=== PATIENT | female | born 1960 | race Caucasian/White ===

== ENCOUNTER → 2016-08-02 | Outpatient (CLI) | payer BC | LOC: BRMIMAGING 08:47 | PROVIDERS: ATTEND Internal Medicine | DX: R93.421 Abnormal radiologic findings on diagnostic imaging of right kidney (principal); R93.422 Abnormal radiologic findings on diagnostic imaging of left kidney; K76.0 Fatty (change of) liver, not elsewhere classified; I10 Essential (primary) hypertension; D72.829 Elevated white blood cell count, unspecified; R11.10 Vomiting, unspecified | CPT/HCPCS: 76700-PO ==

== ENCOUNTER → 2016-08-22 | Outpatient (CLI) | payer BC ==
[~2016-08-22] MED LIST: IOPAMIDOL (ISOVUE-300) 100 ML BTL IV ONE
== END ==
LOC: CIMAGING 10:23
PROVIDERS: ATTEND Internal Medicine
DX: N28.89 Other specified disorders of kidney and ureter (principal)
CPT/HCPCS: 74178-PO; Q9967

== ENCOUNTER → 2018-05-13 | Outpatient (CLI) | payer BC | LOC: BRMIMAGING 10:10 | PROVIDERS: ATTEND Internal Medicine | DX: M81.0 Age-related osteoporosis without current pathological fracture (principal); E66.9 Obesity, unspecified; E78.5 Hyperlipidemia, unspecified; I10 Essential (primary) hypertension; E28.39 Other primary ovarian failure; Z82.62 Family history of osteoporosis ==

== ENCOUNTER → 2018-05-23 | Outpatient (CLI) | payer BC | LOC: FIMAGING 11:05 | PROVIDERS: ATTEND Internal Medicine | DX: R22.42 Localized swelling, mass and lump, left lower limb (principal) ==